=== PATIENT | female | born 2005 | race Caucasian/White ===

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

== ENCOUNTER 2025-06-26 06:53 | Emergency (ER) | payer OTHER ==
[2025-06-26] MEDS: Ondansetron 4 MG/2 ML SDV IVPUSH ONE (07:47)
== END 2025-06-26 10:49 | disposition home or self-care (01) ==
LOC: JP.ED 06:53
DX: G89.18 Other acute postprocedural pain (principal); R10.31 Right lower quadrant pain; Z79.899 Other long term (current) drug therapy
CPT/HCPCS: 93926; 96374; 96375; 99284; J1171; J2405; J7030